=== PATIENT | male | born 1950 | race Caucasian/White ===

== ENCOUNTER 2017-02-14 09:56 | Inpatient (IN) | payer MEDICARE ==
[~2017-02-14] VITALS: Ht 185.4 cm; Wt 78.0 kg
--- NOTE | 2017-02-14 10:00 | NUR ---
PATIENT ARRIVED TO ER C/O LEFT KNEE PAIN/SWELLING S/P DOG RUNNING INTO KNEE. PATIENT IS A/OX 4. BREATHING EVEN AND UNLABORED ON ROOM AIR. NO SOB. NO TRAUMA NOTED. PATIENTS VITALS STABLE. SAFETY AND COMFORT MEASURES IN PLACE. AWAITING MD ORDERS.
--- NOTE | 2017-02-14 10:22 | NUR ---
TERMINATION CLERK AT BEDSIDE.
--- NOTE | 2017-02-14 11:33 | NUR ---
CALLED NURSING COMPUTER TECHNOLOGY TEACHER FOR M/S BED
[2017-02-14 12:00] LABS: BASOPHILS # (AUTO) 0.1 /CMM (0.0-0.2); BASOPHILS % (AUTO) 0.6 % (0.0-2.0); EOSINOPHILS # (AUTO) 0.1 /CMM (0.0-0.7); EOSINOPHILS % (AUTO) 1.1 % (0.0-6.0); HEMATOCRIT 42 % (39-51); HEMOGLOBIN 13.8 g/dL (13.5-17.5); LYMPHOCYTES # (AUTO) 1.7 /CMM (0.8-4.8); MEAN CORPUSCULAR HEMOGLOBIN 26 PG (26.0-33.0); MEAN CORPUSCULAR HGB CONC 33 g/dl (31.0-36.0); MEAN CORPUSCULAR VOLUME 81 fL (80-96); MONOCYTES # (AUTO) 0.6 /CMM (0.1-1.30); NEUTROPHILS # (AUTO) 6.4 /CMM (1.8-8.9); NEUTROPHILS % (AUTO) 72.3 % (43.0-81.0); PLATELET COUNT (AUTO) 253 /CMM (150-450); RDW COEFFICIENT OF VARIATION 13.1 (11.5-15.0); RED BLOOD CELL COUNT(AUTO) 5.23 MIL/uL (4.5-6.0); WHITE BLOOD COUNT (AUTO) 8.9 K/uL (4.3-11.0)
[2017-02-14] MEDS ORDERED: LISI2.5T2 PO (12:07)
[2017-02-14] MEDS ORDERED: RITO100T PO (12:07)
[2017-02-14] MEDS ORDERED: DOLU50TA PO (12:07)
[2017-02-14] MEDS ORDERED: OXYC15TA2 PO (12:07)
[2017-02-14] MEDS ORDERED: ALPR0.5T PO (12:07)
[2017-02-14] MEDS ORDERED: DARU800T PO (12:07)
[2017-02-14] MEDS ORDERED: CHOL100044 PO (12:07)
[2017-02-14 12:08] LABS: CALCIUM, SERUM 8.6 mg/dL (8.5-10.1); CREATININE 0.8 mg/dL (0.6-1.3); POTASSIUM 4.1 mmol/L (3.5-5.1)
[2017-02-14 12:12] LABS: INR 1.08 (0.87-1.13); PROTHROMBIN TIME 11.2 SECS (9.5-12.7)
[2017-02-14] MEDS ORDERED: LISI1TAB13 PO (12:14)
--- NOTE | 2017-02-14 12:15 | NUR ---
PATIENT TAKEN TO CT VIA STRETCHER
[2017-02-14] MEDS ORDERED: RANI300T4 PO (12:16)
[2017-02-14] MEDS ORDERED: ATOR10TA PO (12:16)
--- NOTE | 2017-02-14 12:26 | NUR ---
CALLED DR KATELYN HUMPHREY FOR PANEL ADMISSION, TRANSFERRED CALL TO DR TRAN
[2017-02-14] MEDS ORDERED: ALPRAZOLAM 0.5 MG TABLET PO PRN (13:00)
--- NOTE | 2017-02-14 13:05 | NUR ---
PAGED INFORMATION SECURITY MANAGER ORTHO FOR CONSULT, DR CARRINGTON
[2017-02-14] MEDS ORDERED: ACETAMINOPHEN 325 MG TABLET PO PRN (13:30)
[2017-02-14] MEDS ORDERED: Z GUARD REMEDY 2 OZ OINT TP PRN (13:30)
[2017-02-14] MEDS ORDERED: MAGNESIUM HYDROXIDE 30 ML UDC PO PRN (13:30)
[2017-02-14] MEDS ORDERED: ZOLPIDEM TARTRATE 5 MG TABLET PO PRN (13:30)
[2017-02-14] MEDS ORDERED: MAG HYDROX/AL HYDROX/SIMETH 30 ML UDC PO PRN (13:30)
[2017-02-14] MEDS ORDERED: ONDANSETRON HCL/PF 4 MG/2 ML VIAL IVP PRN (13:30)
--- NOTE | 2017-02-14 13:45 | NUR ---
REPORT GIVEN TO CACHORRO ESCOBAR FOR ADMISSION
--- NOTE | 2017-02-14 13:55 | NUR ---
PATIENT TRANSPORTED TO [facility] FOR ADMISSION VIA STRETCHER WITH EMT
--- NOTE | 2017-02-14 14:21 | NUR ---
PATIENT IS SEEN BY DR. DARBY TODAY. NO SURGERY INDICATED PER MD, NWB LEFT LEG AND LEFT WRIST, PT EVAL ORDERED.
[2017-02-14 14:30] VITALS: BP 141/94
--- NOTE | 2017-02-14 14:30 | NUR ---
MS RN NOTES 66 YEARS OLD MALE BROUGHT IN FROM ER, ADMITTED FROM HOME. PATIENT IS AWAKE, A/O X4. COOPERATIVE, ON ROOM AIR, TOLERATING WELL. NO SOB. V/S TAKEN AND RECORDED. LEFT WRIST WITH BRACE/SPLINT, LEFT LEG KNEE IMMOBILIZER IN PLACE. MADE COMFORTABLE IN BED, PLACE CALL LIGHT WITHIN REACH. WILL CONT TO MONITOR.
[2017-02-14] MEDS: MORPHINE SULFATE INJ 2 MG/ML DISP.SYRIN IV PRN ×2 (15:20→20:18)
[2017-02-14 16:00] VITALS: BP 149/90
[2017-02-14] MEDS: RITONAVIR 100 MG CAPSULE PO SCH (17:06)
[2017-02-14] MEDS: oxyCODONE IR immediate release 5 MG CAPSULE PO PRN ×2 (18:13→22:11)
--- NOTE | 2017-02-14 18:30 | NUR ---
MS RN CLOSING NOTES PATIENT IN BED, A/O X4. NOT IN DISTRESS. ON PAIN MANAGEMENT. NWB LEG LEG AND LEFT WRIST PER ORTHO. IV IN RIGHT AC PATENT AND INTACT, FLUSHES WELL. LEFT WRIST BRACE AND LEFT LEG KNEE IMMOBILIZER IN PLACE. NO C/O PAIN AT THIS TIME. FOR PT EVAL ORDERED. WILL ENDORSE TO REFRIGERATION PLANT CORK INSULATOR RN FOR KILEY.
--- NOTE | 2017-02-14 19:20 | NUR ---
RN INITIAL NOTES: RECEIVED REPORT FROM SHAWN IVORY, PT IN BED, AWAKE, A/O X3, C/O 7/10 PAIN ON LEFT WRIST AND LEFT KNEE, PT HAS LEFT WRIST BRACE AND LEFT KNEE IMMOBILIZER IN PLACED, NOTED SWELLING ON LEG, RIGHT AC IV ACCESS PATENT AND FLUSHING WELL, ON HL. SAFETY PRECAUTIONS FOR FALL INITIATED CALL LIGHT IN REACH WILL CONTINUE TO MONITOR
[2017-02-14 20:00] VITALS: BP 154/98
--- NOTE | 2017-02-14 20:06 | NUR ---
CONTACTED [facility] ASPHALT DISTRIBUTOR TENDER: PT REQUESTING TO GET OXYCODONE HCL 20MG FOR PAIN, HE STATED THIS IS THE MEDICATION HE'S TAKING FOR HIS PAIN AT HOME, INFORMED PT THAT HE'S GETTING OXY IR 15MG Q4HRS FOR PAIN MANAGEMENT AND MORPHINE IV 2MG Q3HRS, PER PT HE STATED HE WANTS IT 20MG FOR OXYCODONE, CONTACTED [facility] [employer] DISTRIBUTOR TENDER RYAN HERNANDEZ, AND EXPLAIN ABOUT PT'S REQUEST PER WOODEN BOAT BUILDER HE STATED HE DOESNT WANT TO GIVE TOO MUCH PAIN MEDICATION OXYCODONE IR 15MG IS ALREADY A HIGH DOSE FOR PAIN MANAGEMENT,
--- NOTE | 2017-02-14 20:18 | NUR ---
prn morphine: pt c/o pain on left knee and wrist 03/29 requesting for pain medication, prn morphine 2mg ivp administered to the pt at this time, educate pt regarding medication side effect, will continue to monitor and reassess
[2017-02-14] MEDS ORDERED: ATORVASTATIN 10 MG TABLET ONE (20:54)
[2017-02-14] MEDS: ATORVASTATIN 10 MG TABLET PO SCH (21:06)
[2017-02-14] MEDS: ENOXAPARIN SODIUM 40 MG/0.4 ML DISP.SYRIN SQ SCH (21:07)
--- NOTE | 2017-02-14 21:28 | NUR ---
RN NOTES: OFFERED ICE PACK FOR KNEE AND LEG TO HELP DECREASE SWELLING, PT DENIES ANY TINGLING NUMBNESS ON LEFT KNEE, PEDAL PULSES PALPABLE AND INTACT, TENDER UPON PALPATION AND MOVEMENT, WILL CONTINUE TO MONITOR
--- NOTE | 2017-02-14 22:11 | NUR ---
prn oxy ir: pt c/o pain on left knee and wrist 01/26 requesting for oxy ir, prn oxy ir 15mgtab administered to the pt at this time, will continue to monitor and reassess
[2017-02-14 22:13] VITALS: BP 135/88
--- NOTE | 2017-02-14 22:28 | NUR ---
RN NOTES: PT IN BED, AWAKE, JUST RECEIVED PAIN MEDICATION, RESPIRATION EVEN AND UNLABORED, LEFT WRIST BRACE AND LEFT KNEE IMMOBILIZER IN PLACED IV ACCESS REMAINS PATENT AND FLUSHING WELL, ON HL. SAFETY PRECAUTIONS REMAINS ENGAGED CALL LIGHT IN REACH, ENDORSED TO RN ILIA FOR CONTINUITY OF CARE
--- NOTE | 2017-02-14 22:30 | NUR ---
RN ASSUMED CARE TO PATIENT. ALERT AND ORIENTED X4, NO DISTRESS, RECEIVED PAIN MEDICATION EARLIER. WILL CONTINUE TO MONITOR
[2017-02-15] MEDS: oxyCODONE IR immediate release 5 MG CAPSULE PO PRN ×4 (03:19→18:12)
--- NOTE | 2017-02-15 03:22 | NUR ---
RN NOTES GIVEN OXYCODONE IR 15 MG PO FOR PAIN TO LEFT LEG OF 8/10, BP WNL, WILL CONTINUE TO MONITOR
[2017-02-15] MEDS: MORPHINE SULFATE INJ 2 MG/ML DISP.SYRIN IV PRN ×4 (05:42→19:42)
--- NOTE | 2017-02-15 06:30 | NUR ---
PATIENT IS ALERT AND AWAKE, NO SOB, NO RESIDUAL DROWSINESS FROM MORPHINE, PROVIDED PAIN MEDICATION DURING SHIFT, LEFT LEG HAS IMMOBILIZER, NEEDS ATTENDED, CALL LIGHT WITHIN REACH.
[2017-02-15 06:59] LABS: BASOPHILS % (AUTO) 0.2 % (0.0-2.0); EOSINOPHILS # (AUTO) 0.2 /CMM (0.0-0.7); EOSINOPHILS % (AUTO) 3.1 % (0.0-6.0); HEMATOCRIT 41 % (39-51); HEMOGLOBIN 13.8 g/dL (13.5-17.5); LYMPHOCYTES # (AUTO) 1.4 /CMM (0.8-4.8); LYMPHOCYTES % (AUTO) 17.7 % (20.0-44.0); MEAN CORPUSCULAR HEMOGLOBIN 27 PG (26.0-33.0); MEAN CORPUSCULAR HGB CONC 34 g/dl (31.0-36.0); MEAN CORPUSCULAR VOLUME 81 fL (80-96); MONOCYTES # (AUTO) 0.7 /CMM (0.1-1.30); MONOCYTES % (AUTO) 8.9 % (2.0-12.0); NEUTROPHILS # (AUTO) 5.5 /CMM (1.8-8.9); NEUTROPHILS % (AUTO) 70.1 % (43.0-81.0); PLATELET COUNT (AUTO) 211 /CMM (150-450); RDW COEFFICIENT OF VARIATION 13.7 (11.5-15.0); RED BLOOD CELL COUNT(AUTO) 5.05 MIL/uL (4.5-6.0); WHITE BLOOD COUNT (AUTO) 7.9 K/uL (4.3-11.0)
[2017-02-15 07:00] LABS: CALCIUM, SERUM 8.5 mg/dL (8.5-10.1); CREATININE 0.8 mg/dL (0.6-1.3); MAGNESIUM 1.9 mg/dL (1.8-2.4); POTASSIUM 4.4 mmol/L (3.5-5.1)
[2017-02-15 07:07] LABS: THYROID STIMULATING HORMONE 1.684 uIU/mL (0.358-3.74)
--- NOTE | 2017-02-15 07:18 | NUR ---
RN INITIAL NOTES: RECEIVED PATIENT AWAKE IN BED IN NO ACUTE SIGNS OF DISTRESS. A/O X3, NO C/O PAIN OR DISCOMFORTS AT THIS TIME. PT HAS LEFT WRIST BRACE AND LEFT KNEE IMMOBILIZER IN PLACED. RIGHT AC G#20 IV ACCESS INTACT AND PATENT. CALL LIGHT WITHIN REACH OF PT. BED LOW AND LOCKED. WILL CONTINUE TO MAINTAIN ALL SAFETY MEASURES AND WILL CONTINUE TO MONITOR PT ACCORDINGLY.
[2017-02-15 08:00] VITALS: BP 107/72
[2017-02-15] MEDS: CHOLECALCIFEROL 1,000 UNIT TABLET (VIT D3) PO SCH (08:27)
[2017-02-15] MEDS: PANTOPRAZOLE 40 MG TABLET.DR PO SCH (08:27)
[2017-02-15] MEDS: LISINOPRIL (20MG) 20 MG TABLET PO SCH (08:28)
--- NOTE | 2017-02-15 10:30 | NUR ---
RECEIVED REPORT FROM CACHORRO TRAN. WILL CONTINUE KILEY
[2017-02-15] MEDS: RITONAVIR 100 MG CAPSULE PO SCH (10:42)
[2017-02-15] MEDS ORDERED: PREZISTA 800 MG PO SCH ×2 (11:30→11:43)
[2017-02-15] MEDS: PREZISTA 800 MG PO SCH (12:02)
[2017-02-15] MEDS: TIVICAY 50 MG PO SCH (12:02)
[2017-02-15 16:00] VITALS: BP 130/88
[2017-02-15] MEDS: BOOST PLUS FOOD-VANILLA 237 ML BOX PO SCH (16:25)
--- NOTE | 2017-02-15 18:45 | NUR ---
RN CLOSING NOTES PATIENT IS IN BED. PATIENT IS ALERT AND ORIENTED TO NAME, PLACE AND TIME. VITAL SIGNS ARE STABLE. NO SIGNS AND SYMPTOMS OF DISTRESS. BED IN LOW POSITION, LOCKED AND TWO SIDE RAILS ARE UP. ALL NEEDS ANTICIPATED. PATIENT KEPT CLEAN AND DRY. WILL ENDORSE TO RAIL SWITCHMAN NURSE.
--- NOTE | 2017-02-15 19:47 | NUR ---
MS/RN OPENING NOTES PATIENT IN BED ALERT, ORIENTEDX3 ABLE TO RESPOND AND VERBALIZE NEEDS. PAIN LEVEL OF 8/10 ON LEFT KNEE. RECEIVE REPORT FROM AM RN REGARDING PLAN OF CARE AND COMMUNICATE W/ PATIENT. PROVIDED MEDICATION MORPHINE 2MG/1ML IV WILL MONITOR EFFECTIVENESS OF PAIN OR PAIN RELIEF.
[2017-02-15 20:00] VITALS: BP 116/87
[2017-02-15 20:03] VITALS: BP 116/87
[2017-02-15] MEDS: ENOXAPARIN SODIUM 40 MG/0.4 ML DISP.SYRIN SQ SCH (21:00)
[2017-02-15] MEDS: ATORVASTATIN 10 MG TABLET PO SCH (21:23)
[2017-02-16] MEDS: oxyCODONE IR immediate release 5 MG CAPSULE PO PRN ×5 (02:44→21:10)
--- NOTE | 2017-02-16 02:45 | NUR ---
ms/rn notes PATIENT REPORTED PAIN ON ABDOMEN AT 8/10, REQUESTED PRN MEDICATION OXY IR. WILL CONTINUE MONITORING FOR EFFECTIVENESS OF PAIN MED.
--- NOTE | 2017-02-16 06:57 | NUR ---
MS/RN CLOSING NOTES PATIENT ALERT, ORIENTED X3 ABLE TO VERBALIZE NEEDS. PAIN MEDICATION GIVEN WILL MONITOR EFFECTIVENESS,CALL LIGHT WITHIN REACH. WILL ENDORSE TO AM RN REGARDING PLAN OF CARE.
--- NOTE | 2017-02-16 07:25 | NUR ---
RN NOTES RECEIVED PT IN BED, AWAKE AND ALERT. PT SHOWS NO SOB OR SIGNS OF PAIN. SAFETY MEASURES ARE IN PLACE. WILL CONTINUE TO MONITOR.
[2017-02-16 08:00] VITALS: BP 114/74
[2017-02-16] MEDS: PANTOPRAZOLE 40 MG TABLET.DR PO SCH (08:43)
[2017-02-16] MEDS: LISINOPRIL (20MG) 20 MG TABLET PO SCH (08:44)
[2017-02-16] MEDS: PREZISTA 800 MG PO SCH (08:44)
[2017-02-16] MEDS: RITONAVIR 100 MG CAPSULE PO SCH (08:44)
[2017-02-16] MEDS: CHOLECALCIFEROL 1,000 UNIT TABLET (VIT D3) PO SCH (08:44)
[2017-02-16] MEDS: TIVICAY 50 MG PO SCH (08:44)
[2017-02-16] MEDS: BOOST PLUS FOOD-VANILLA 237 ML BOX PO SCH ×2 (08:51→16:14)
[2017-02-16] MEDS: MORPHINE SULFATE INJ 2 MG/ML DISP.SYRIN IV PRN ×2 (10:38→15:09)
--- NOTE | 2017-02-16 11:38 | NUR ---
Social service consult requested by Dr. Gamble regarding resources on how to navigate medicare benefits. Pt. is a 66 year old male who was admitted to [facility] for multiple fractures. Pt. is alert and oriented x 4. Pt. is friendly and cooperative with SW during the assessment. Pt. informed he has been homeless and has been living in his car. His car is currently at a friend's house. Pt. also has a service dog that a friend is caring for at this time. Pt. states he is anxious about his dog not being able to stay with him when he goes to a [facility] facility. SW reassured pt. she will inform shoe caser Severo regarding pt. having a service dog. Pt. states his dog Allyssa is very well behaved and is known by all his doctors at [facility] in [place]. Pt. receives approximately $1138/ month in social security disability insurance. Pt. offered pt resources, however pt. declined. Pt. stated to SW he just needs to heal and is anxious about his dog Allyssa. SW to follow up with shoe caser regarding pt. having a service animal. Addendum: 02/16/17 at 1145 by OWEN BRANDT KARLY did inquire with pt. how he fractured his left knee and left wrist. Pt. stated a dog ran into his knee and he fell down.
[2017-02-16 16:00] VITALS: BP 121/73
--- NOTE | 2017-02-16 17:26 | NUR ---
WOUND CARE CONSULT PATIENT SEEN AND SKIN ASSESSED. ONLY SKIN ISSUES NOTED ARE DRY INTACT SCABS ON FACE, BILATERAL LOWER EXTREMITIES AND LEFT THUMB. PER PATIENT, HAS HAD SUN SPOTS THAT HAVE BEEN REMOVED BY MD WITH LIQUID NITROGEN RECENTLY FROM HIS FOREHEAD AND CHEEK. LEAVE ALL SCABS OPEN TO AIR. PATIENT ON STRIKER GEL MATTRESS; INDEPENDENT WITH BED MOBILITY. CARE PLAN IN PLACE. WILL CONTINUE TO FOLLOW PATIENT NEEDED. Addendum: 02/16/17 at 1729 by DEBRA MUELLER RN Amended: Links added.
--- NOTE | 2017-02-16 19:00 | NUR ---
PT IS AWAKE IN BED, NO SOB OR COMPLAINTS OF PAIN. ALL MEDS WERE GIVEN ORDERED. IV ON RAC INTACT AND PATENT. ALL MEDS WERE GIVEN ORDERED. SAFETY MEASURES ARE IN PLACE. WILL ENDORSE TO CANTILEVER CRANE OPERATOR RN FOR CONTINUITY OF CARE.
--- NOTE | 2017-02-16 19:30 | NUR ---
MS RN NOTE RECEIVED PATIENT FROM DAY SHIFT, PATIENT IS ALERT AND ORIENTEDX4, NO S/S OF RESPIRATORY DISTRESS AND COMPLAINS OF MILD PAIN ON LEFT LEG AT THIS TIME. IV ON RIGHT AC IS PATENT AND INTACT, HL ONLY. SRX2, BED IN LOW POSITION, CALL LIGHT WITHIN REACH, WILL CONTINUE TO MONITOR PATIENT.
[2017-02-16 20:19] VITALS: BP 96/66
[2017-02-16] MEDS: ENOXAPARIN SODIUM 40 MG/0.4 ML DISP.SYRIN SQ SCH ×2 (21:00→21:09)
[2017-02-16] MEDS: ATORVASTATIN 10 MG TABLET PO SCH (21:10)
--- NOTE | 2017-02-16 21:20 | NUR ---
MS RN NOTE PATIENT COMPLAINS OF PAIN ON LEFT LEG, 02/26. OXY IR PO GIVEN PER PATIENT'S REQUEST. WILL MONITOR EFFECTIVENESS.
[2017-02-17 04:30] VITALS: BP 111/72
--- NOTE | 2017-02-17 04:30 | NUR ---
RN NOTES: PATIENT COMPLAINED OF 7/10 PAIN OVER BLE. BP CHECKED AT 111/72. ADMINISTERED OXY IR 15 MG PO. WILL CONT TO MONITOR.
[2017-02-17] MEDS: oxyCODONE IR immediate release 5 MG CAPSULE PO PRN ×2 (04:31→08:16)
--- NOTE | 2017-02-17 07:04 | NUR ---
MS RN NOTE PATIENT IS RESTING IN BED COMFORTABLY, NO S/S OF RESPIRATORY DISTRESS OR PAIN AT THIS TIME. IV ON RIGHT AC IS PATENT AND INTACT, NO ACUTE EVENT NOTED DURING THE PACKAGING MACHINE OPERATOR. WILL ENDORSE TO DAY SHIFT FOR KILEY.
--- NOTE | 2017-02-17 07:10 | NUR ---
RN MS NOTES PATIENT IN BED, ALERT AND ORIENTEDX4, DENIES PAIN OR DISCOMFORT AT THIS TIME, LEFT LEG BRACE IN PLACED, PIV ON RAC PATENT AND INTACT, ALL NEEDS ATTENDED AND MET, SAFETY MEASURES IN PLACED, CALL LIGHT WITHIN REACH, WILL CONTINUE TO MONITOR.
[2017-02-17 08:00] VITALS: BP 100/64
[2017-02-17 08:02] VITALS: BP 100/61
[2017-02-17] MEDS: LISINOPRIL (20MG) 20 MG TABLET PO SCH (08:02)
[2017-02-17] MEDS: PANTOPRAZOLE 40 MG TABLET.DR PO SCH (08:15)
[2017-02-17] MEDS: CHOLECALCIFEROL 1,000 UNIT TABLET (VIT D3) PO SCH (08:15)
[2017-02-17] MEDS: RITONAVIR 100 MG CAPSULE PO SCH (08:19)
[2017-02-17] MEDS: BOOST PLUS FOOD-VANILLA 237 ML BOX PO SCH (08:19)
[2017-02-17] MEDS: TIVICAY 50 MG PO SCH (08:20)
[2017-02-17] MEDS: PREZISTA 800 MG PO SCH (08:20)
[2017-02-17] MEDS ORDERED: ENOX40DI SQ (09:51)
--- NOTE | 2017-02-17 10:26 | NUR ---
RN MS NOTES RECEIVED ORDER FOR DISCHARGE TO SNF TODAY, PATIENT MADE AWARE, OFFERED TO TAKE PHOTOS OF SKIN, BUT PATIENT REFUSED, EXPLAINED RISKS AND BENEFITS STILL REFUSED, PATIENT STATED "THEY JUST TOOK PICTURES, I DONT THINK IT CHANGED MUCH"
--- NOTE | 2017-02-17 12:37 | NUR ---
REFRESH TECHNICIAN NOTE PATIENT ALERT AND ORIENTED, NO DISTRESS NOTED, RECEIVED DISCHARGE INSTRUCTIONS AND VERBALIZED UNDERSTANDING, BELONGINGS RECONCILED AND COMPLETE, PIV REMOVED, SKIN ASSESSMENT DONE, NO NEW SKIN PROBLEM, PATIENT REFUSED PHOTOS, OFFERED X3 STILL REFUSED, 2 LIQUOR DEPARTMENT MANAGER CAME AND PICKED UP PATIENT, LEFT THE FACILITY IN STABLE CONDITION. REPORT GIVEN TO ANTOINETTE AT [facility]. ALL DISCHARGE PAPERWORKS GIVEN TO THE PATIENT.
== END 2017-02-17 12:37 | DRG 563 ==
LOC: ER 10:00 → MED 13:34
DX: S82.145A Nondisplaced bicondylar fracture of left tibia, initial encounter for closed fracture (principal); S52.502A Unspecified fracture of the lower end of left radius, initial encounter for closed fracture; S52.602A Unspecified fracture of lower end of left ulna, initial encounter for closed fracture; M25.062 Hemarthrosis, left knee; E11.9 Type 2 diabetes mellitus without complications; I10 Essential (primary) hypertension; J45.909 Unspecified asthma, uncomplicated; G89.29 Other chronic pain; G62.9 Polyneuropathy, unspecified; M16.11 Unilateral primary osteoarthritis, right hip; W54.1XXA Struck by dog, initial encounter; Y93.9 Activity, unspecified; Y92.89 Other specified places as the place of occurrence of the external cause; Y99.9 Unspecified external cause status; Z96.642 Presence of left artificial hip joint; M85.80 Other specified disorders of bone density and structure, unspecified site; M47.897 Other spondylosis, lumbosacral region; M46.07 Spinal enthesopathy, lumbosacral region
CPT/HCPCS: 36415; 71010-TC; 72100-TC; 73110; 73502; 73564-TC; 73700-TC; 80048-TC; 80061-TC; 83735-TC; 84100-TC; 84443-TC; 85025-TC; 85730-TC; 87081-TC; 93307-TC; 97001-TC; 97116-TC; 97530-TC; A4606; J1650; J2270; Z7610

== ENCOUNTER 2017-03-12 11:49 | Emergency (ER) | payer MEDICARE ==
[~2017-03-12] VITALS: Ht 182.9 cm; Wt 74.8 kg
[2017-03-12 11:49] VITALS: BP 124/84
[~2017-03-12 11:49] MED LIST: ALPR0.5T PO; ATOR10TA PO; CHOL100044 PO; DARU800T PO; DOLU50TA PO; ENOX40DI SQ; LISI1TAB13 PO; OXYC15TA2 PO; RANI300T4 PO; RITO100T PO
[2017-03-12] MEDS ORDERED: ACET-868 PO (12:26)
[2017-03-12] MEDS ORDERED: MAGN400O6 PO (12:26)
[2017-03-12] MEDS ORDERED: MULT-24 PO (12:26)
[2017-03-12] MEDS ORDERED: ACET-2605 PO (12:26)
--- NOTE | 2017-03-12 12:37 | NUR ---
`CALLED TRANSPORT ETA 30-45 MIN NADIR BARRAGAN
== END 2017-03-12 13:04 | disposition home or self-care (01) ==
LOC: ER 11:56
DX: S82.202A Unspecified fracture of shaft of left tibia, initial encounter for closed fracture (principal); X58.XXXA Exposure to other specified factors, initial encounter; Y93.01 Activity, walking, marching and hiking; Y92.89 Other specified places as the place of occurrence of the external cause; Y99.8 Other external cause status
CPT/HCPCS: 29505; 99283; A4606; Z7610